=== PATIENT | male | born 1970 | race Caucasian/White ===

== ENCOUNTER 2017-02-03 01:56 | Inpatient (IN) | payer BC, OTHER ==
[~2017-02-03] VITALS: Ht 182.9 cm; Wt 128.4 kg
[~2017-02-03 01:56] MED LIST: ADVIN10/60 INH
[2017-02-03] MEDS ORDERED: ONDANSETRON INJ 2 MG/ML 2 ML VIAL IV STA (02:09)
[2017-02-03] MEDS ORDERED: HYDROmorphone INJ 1 MG/ML SYR IV STA ×4 (02:09→11:20)
[2017-02-03] MEDS ORDERED: SODIUM CHLORIDE 0.9% 1000ML 1,000 ML IV STA (02:09)
[2017-02-03 02:27] LABS: BASO % 0.3 %; BASO ABS # 0.03 K/uL (0-0.2); COMPLETE YES; EOS % 1.1 %; HEMATOCRIT 42.9 % (42-52); IG% 0.1 %; LYMPH % 29.6 %; MEAN CELL VOLUME 93.1 fL (80-100); MEAN CORPUSCULAR HEMOGLOBIN 32.8 pg (25-34); MEAN CORPUSCULAR HGB CONC 35.2 g/dl (32-36); MEAN PLATELET VOLUME 10.9 fL (7.4-10.4); MONO % 9.7 %; NEUT % 59.2 %; PLATELET COUNT 225 K/uL (130-400); RED BLOOD COUNT 4.61 M/uL (4.7-6.1); WHITE BLOOD COUNT 9.13 K/uL (4.8-10.8)
[2017-02-03 02:45] LABS: BUN/CREATININE RATIO 10.9 (10-20); CALCIUM 8.2 mg/dl (8.5-10.1); CREATININE 0.92 mg/dl (0.60-1.40); POTASSIUM 3.6 mmol/L (3.5-5.1)
[2017-02-03] MEDS ORDERED: MISCCAP80 PO (03:42)
[2017-02-03] MEDS ORDERED: OMEG10007 PO (03:42)
[2017-02-03] MEDS ORDERED: MULT-506 PO (03:42)
[2017-02-03] MEDS ORDERED: CHOL1CAP51 PO (03:42)
[2017-02-03] MEDS ORDERED: CLR10 PO (03:43)
[2017-02-03] MEDS ORDERED: OPTIRAY 320 IV PRN (04:00)
[2017-02-03 04:06] LABS: URINE APPEARANCE CLOUDY (CLEAR); URINE BILIRUBIN NEG (NEG); URINE COLOR YELLOW; URINE NITRITE NEG (NEG); URINE SPECIFIC GRAVITY 1.023 (1.000-1.030); UROBILINOGEN NEG (NEG); ZZUR CULT IF INDIC CLEAN CATCH NO
[2017-02-03 04:10] LABS: MANUAL MICROSCOPIC REQUIRED? NO; REVIEW REQ? NO
[2017-02-03] MEDS ORDERED: HYDROmorphone INJ 2 MG/ML SYR/VIAL IV STA (04:11)
[2017-02-03] MEDS ORDERED: PIPERACILLIN/TAZOBACTAM 4.5 GM/100ML D5W IV STA (04:48)
[2017-02-03] MEDS ORDERED: VANCOMYCIN INJ 2,800 MG in SODIUM CHLORIDE 0.9% 500ML 500 ML IV STA (04:48)
[2017-02-03] MEDS ORDERED: POLYETHYLENE (MIRALAX) 17 GM PACK PO PRN (05:45)
[2017-02-03] MEDS ORDERED: MoRPHine SULFATE 4 MG/ML 1 ML CARP\\VIAL IV PRN (05:45)
[2017-02-03] MEDS ORDERED: ONDANSETRON INJ 2 MG/ML 2 ML VIAL IV PRN (05:45)
[2017-02-03] MEDS ORDERED: LORAZEPAM 1 MG TAB PO PRN (05:45)
[2017-02-03] MEDS ORDERED: ZOLPIDEM TARTRATE 5 MG TAB PO PRN (05:45)
[2017-02-03] MEDS ORDERED: PIPERACILL/TAZOBAC IV 3.375 GM in DEXTROSE 5% 100ML 100 ML IV SCH (06:00)
--- NOTE | 2017-02-03 06:07 | EMERGENCY ROOM VISIT NOTE ---
History Report prepared by Hajaibmatias: Noe Pulido Under the Supervision of: Dr. Dennis Shaffer M.D. First contact with patient: 02:04 Chief Complaint: ABDOMINAL PAIN Stated Complaint: PAIN ON RIGHT SIDE Nursing Triage Summary: Pt reports fever for 6 days. At 10 pm pt developed right sided pain that radiates to right shoulder. History of Present Illness The patient is a 46 year old male who presents to the Emergency Room with complaints of constant upper abdominal pain beginning four hours ago. He states that his pain began suddenly. He states that he has been experiencing a shooting pain into his right shoulder. The patient states "it feels like a muscle pain, like I twisted something". He notes that he has had a fever for the past six days. His fever peaked at 102.7 degrees. The patient notes that his symptoms began immediately following dinner, where he had three alcoholic drinks. He denies any chest pain or SOB. He has no history of blood clots. The patient is not chronically on steroids. He denies any recent travel. He denies any recent trauma, or exposure or chemicals. He notes that he has a history of elevated liver enzymes with unknown etiology. The patient's mother has a history of gallbladder issues. Source of History: patient Onset: four hours ago Position: abdomen (upper) Timing: constant Associated Symptoms: + fevers (beginning 6 days ago), No SOB, No chest pain Note: The patient also complains of pain shooting into his right shoulder. Review of Systems See HPI for pertinent positives & negatives. A total of 10 systems reviewed and were otherwise negative. Past Medical & Surgical Medical Problems: (1) Asthma (2) Pleural effusion (3) Pleuritis (4) Pneumonia Family History no pertinent family history stated Social History Smoking Status: Current Every Day Smoker Occupation Status: employed Current/Historical Medications Scheduled Cholecalciferol (Vitamin D3 High Potency), 1,000 UNIT PO DAILY Fish Oil ([place]-3), 1 CAP PO DAILY Loratadine (Claritin), 10 MG PO DAILY Multivitamin (Multivitamin), 1 TAB PO DAILY Probiotic Product (Probiotic), 1 CAP PO DAILY Allergies Coded Allergies: Omeprazole (Unverified Allergy, Mild, 02/03/17) Physical Exam Vital Signs Date Time Temp Pulse Resp B/P Pulse Ox O2 Delivery O2 Flow Rate FiO2 02/03/17 05:21 99 02/03/17 04:33 78 18 140/88 94 Nasal Cannula 2.0 02/03/17 04:11 97 18 153/100 92 Room Air 02/03/17 03:35 102 20 136/78 94 Room Air 02/03/17 02:02 37.0 103 20 129/79 92 Room Air Physical Exam GENERAL: Patient is uncomfortable appearing and in moderate distress. HEENT: No acute trauma, normocephalic atraumatic, mucous membranes moist, no nasal congestion, no scleral icterus. NECK: No stridor, no adenopathy, no meningismus, trachea is midline. LUNGS: No dyspnea. Clear to auscultation and equal bilaterally. No wheeze, no rhonchi. HEART: Regular rate and rhythm. No murmurs, rubs, gallops appreciated. ABDOMEN: Soft, tenderness to palpation in RUQ, bowel sounds positive, no masses appreciated, no peritonitis. BACK: No midline tenderness, no CVA tenderness EXTREMITIES: Normal motion all extremities, no cyanosis, no edema. NEUROLOGIC: Alert and oriented, no acute motor or sensory deficits, no focal weakness, cranial nerves grossly intact. SKIN: No rash, no jaundice, no diaphoresis. Medical Decision & Procedures ER Provider Diagnostic Interpretation: US/CT RESULTS PER [facility] AND MY REVIEW US RUQ The liver is mildly enlarged measuring 19.1 cm with increased echogenicity suggesting hepatic steatosis. Common bile duct is within normal limits measuring 3.9 mm. The gallbladder is unremarkable. No gallstones, sludge, gallbladder wall thickening, or pericholecystic fluid. The right kidney is unremarkable. CT ABDOMEN & PELVIS Patulous passes are seen within the lower lobes which may represent inflammatory / infectious process. Small right-sided pleural effusion. Decreased attenuation of the liver suggest hepatic steatosis. The gallbladder, spleen, pancreas, and adrenal glands are unremarkable. Simply cysts are seen within both kidneys. The appendix is unremarkable. Modified colonic diverticulosis. No free fluid. No free air. No acute osseous abnormality. CTA CHEST: Comparison 01/15/[address] No evidence of pulmonary embolus. There are a few nodular areas of consolidation seen within the subpleural lungs. Findings may represent inflammatory/ infectious process to include septic emboli and Miya's granulomatosis. Trace right-sided pleural effusion. No pneumothorax. The heart and pericardium are unremarkable. Subcentimeter mediastinal and hilar lymph nodes, likely reactive. Visualized upper abdomen is unremkarble. No acute osseous abnormality. Laboratory Results 02/03/17 02:10 Red Blood Count 4.61, Mean Corpuscular Volume 93.1, Mean Corpuscular Hemoglobin 32.8, Mean Corpuscular Hemoglobin Concent 35.2, Mean Platelet Volume 10.9, Neutrophils (%) (Auto) 59.2, Lymphocytes (%) (Auto) 29.6, Monocytes (%) (Auto) 9.7, Eosinophils (%) (Auto) 1.1, Basophils (%) (Auto) 0.3, Neutrophils # (Auto) 5.40, Lymphocytes # (Auto) 2.70, Monocytes # (Auto) 0.89, Eosinophils # (Auto) 0.10, Basophils # (Auto) 0.03 02/03/17 02:10 Test 02/03/17 02:10 02/03/17 03:30 02/03/17 05:20 02/03/17 05:30 White Blood Count 9.13 K/uL (4.8-10.8) Red Blood Count 4.61 M/uL (4.7-6.1) Hemoglobin 15.1 g/dL (14.0-18.0) Hematocrit 42.9 % (42-52) Mean Corpuscular Volume 93.1 fL (80-100) Mean Corpuscular Hemoglobin 32.8 pg (25-34) Mean Corpuscular Hemoglobin Concent 35.2 g/dl (32-36) Platelet Count 225 K/uL (130-400) Mean Platelet Volume 10.9 fL (7.4-10.4) Neutrophils (%) (Auto) 59.2 % Lymphocytes (%) (Auto) 29.6 % Monocytes (%) (Auto) 9.7 % Eosinophils (%) (Auto) 1.1 % Basophils (%) (Auto) 0.3 % Neutrophils # (Auto) 5.40 K/uL (1.4-6.5) Lymphocytes # (Auto) 2.70 K/uL (1.2-3.4) Monocytes # (Auto) 0.89 K/uL (0.11-0.59) Eosinophils # (Auto) 0.10 K/uL (0-0.5) Basophils # (Auto) 0.03 K/uL (0-0.2) RDW Standard Deviation 39.9 fL (36.4-46.3) RDW Coefficient of Variation 11.8 % (11.5-14.5) Immature Granulocyte % (Auto) 0.1 % Immature Granulocyte # (Auto) 0.01 K/uL (0.00-0.02) D-Dimer 1090 ug/L FEU (0-500) Anion Gap 9.0 mmol/L (3-11) Est Creatinine Clear Calc Drug Dose 141.2 ml/min Estimated GFR () 116.8 Estimated GFR (Non- 100.8 BUN/Creatinine Ratio 10.9 (10-20) Calcium Level 8.2 mg/dl (8.5-10.1) Total Bilirubin 0.3 mg/dl (0.2-1) Direct Bilirubin 0.1 mg/dl (0-0.2) Aspartate Amino Transf (AST/SGOT) 17 U/L (15-37) Alanine Aminotransferase (ALT/SGPT) 44 U/L (12-78) Alkaline Phosphatase 70 U/L (45-117) Total Protein 7.7 gm/dl (6.4-8.2) Albumin 3.5 gm/dl (3.4-5.0) Lipase 124 U/L (73-393) Urine Color YELLOW Urine Appearance CLOUDY (CLEAR) Urine pH 5.0 (4.5-7.5) Urine Specific [place] 1.023 (1.000-1.030) Urine Protein NEG (NEG) Urine Glucose (UA) NEG (NEG) Urine Ketones 1+ (NEG) Urine Occult Blood NEG (NEG) Urine Nitrite NEG (NEG) Urine Bilirubin NEG (NEG) Urine Urobilinogen NEG (NEG) Urine Leukocyte Esterase NEG (NEG) Urine WBC (Auto) 1-5 /hpf (0-5) Urine RBC (Auto) 0-4 /hpf (0-4) Urine Hyaline Casts (Auto) 1-5 /lpf (0-5) Urine Epithelial Cells (Auto) 5-10 /lpf (0-5) Urine Bacteria (Auto) NEG (NEG) Erythrocyte Sedimentation Rate 61 mm/hr (0-14) Total Creatine Kinase 80 U/L (39-308) Creatine Kinase MB < 0.5 ng/ml (0.5-3.6) Creatine Kinase MB Ratio (0-3.0) Troponin I < 0.015 ng/ml (0-0.045) C-Reactive Protein 4.32 mg/dl (0-0.29) Bedside Lactic Acid Venous 0.79 mmol/L (0.90-1.70) Laboratory results as reviewed by me. Medications Administered Medications (Trade) Dose Ordered Sig/Trae Route Start Time Stop Time Status Last Admin Dose Admin Hydromorphone HCl (Dilaudid Inj) 1 mg NOW STAT IV 02/03/17 02:09 02/03/17 02:10 DC 02/03/17 02:26 1 MG Ondansetron HCl 4 mg 4 mg NOW STAT IV 02/03/17 02:09 02/03/17 02:10 DC 02/03/17 02:26 4 MG Sodium Chloride (Nss 1000ml) 1,000 ml @ 999 mls/hr Q1H1M STAT IV 02/03/17 02:09 02/03/17 03:09 DC 02/03/17 02:09 999 MLS/HR Hydromorphone HCl (Dilaudid Inj) 1 mg NOW STAT IV 02/03/17 02:27 02/03/17 02:29 DC 02/03/17 02:32 1 MG Hydromorphone HCl (Dilaudid Inj) 1 mg NOW STAT IV 02/03/17 03:25 02/03/17 03:26 DC 02/03/17 03:38 1 MG Hydromorphone HCl (Dilaudid Inj) 2 mg NOW STAT IV 02/03/17 04:11 02/03/17 04:12 DC 02/03/17 04:28 2 MG Piperacillin Sod/ Tazobactam Sod 4.5 gm 4.5 gm NOW STAT IV 02/03/17 04:48 02/03/17 04:51 DC 02/03/17 05:35 4.5 GM Vancomycin HCl/ Sodium Chloride (Vancomycin Inj/ Nss 500ml) 556 ml @ 200 mls/hr ONE STAT IV 02/03/17 04:48 02/03/17 07:34 DC 02/03/17 05:54 200 MLS/HR ECG Indication: abdominal pain Rate (beats per minute): 93 Rhythm: normal sinus Findings: no acute ischemic change, no ectopy ED Course 0206: The patient was evaluated in room B4B. A complete history and physical exam was performed. 0325: I reassessed the patient, and he is having more pain. 0209: Ordered sodium chloride 1,000 ml @ 999 mls/hr IV, Zofran Inj 4 mg IV, Dilaudid Inj 1 mg IV 0227: Ordered Dilaudid Inj 1 mg IV 0325: Ordered Dilaudid Inj 1 mg IV 0345: I checked in on the patient, and he states that his pain is now more continuous, but less severe than before. He agrees to a CT. 0411: Ordered Dilaudid Inj 2 mg IV. 0445: I spoke with the patient. He is agreeable to staying in the hospital. 0448: Ordered Vancomycin HCl 2800 mg/Sodium Chloride 556 ml @ 200 mls/hr, Zosyn IV 4.5 gm IV. 0505: Upon reevaluation, the patient is resting comfortably. Discussed results and treatment plan with the patient. He verbalized understanding and agreement with the treatment plan. The patient will be evaluated for further management. Medical Decision Differential: Cholecystitis, Gallbladder disfunction, Hepatic Disfunction, Gastritis/PUD, Pancreatitis, ACS, Aortic Pathology, amongst other pathologies entertained. 46 yr old male arrives with complaint of RUQ abdominal pain radiating to right posterior chest/shoulder. Associated with pleuritic chest pain. Fevers ongoing for last week. US Gallbladder unremarkable. Thus with pleuritic pain felt next concern PE and having +dimer will need CT PE Study. While doing this will get CT Abdo/Pelv as to verify no other abdominal infectious etiology either. CT PE with multiple areas of infection raising concern for septic emboli. Of note patient with normal WBC and no fever now. On rediscussing with patient he notes recent dental infection. With this I am concerned he may have seeded heart valve and may have endocarditis. I do not appreciate murmur on exam. Blood cultures, lactic acid, esr, crp ordered. Lactic is wnl and not hypotensive. He is not septic shock, nor does he currently meet sepsis criteria. However, as he has concern for septic emboli, he is having pretty much intractable pain, and he will need IV abx, he will need to come in for further evaluation/treatment. Stable otherwise. He and (who is a nurse) agree with plan and questions answered. Consults Time Called: [phone] Consulting Physician: Dr. Arroyo [place] [place] Returned Call: [phone] Discussed the patient's case. The patient will be evaluated for further treatment and disposition. Impression Primary Impression: Septic embolism Additional Impressions: Pleural effusion Intractable pain Scribe Attestation The scribe's documentation has been prepared under my direction and personally reviewed by me in its entirety. I confirm that the note above accurately reflects all work, treatment, procedures, and medical decision making performed by me. Departure Information Dispostion Being Evaluated By Hospitalist Referrals Naif Ugalde M.D. (PCP) Patient Instructions My [facility] Problem Qualifiers
--- NOTE | 2017-02-03 06:08 | History and Physical ---
History & Physical Date & Time of Service: February 03, 2017 at 05:45 Chief Complaint: Pain On Right Side Primary Care Physician: Naif Ugalde M.D. History of Present Illness Source: patient, family This is a 46 yo m with no significant past medical history which is presenting to us with acute right sided abdominal pain/ shoulder pain which started approx 4 hour [employer] right after having dinner where he consumed 3 alcoholic drinks. Patient states that he went to lay down when he had a sharp 10 /10 pain in the RUQ of his abdomen. He states that it radiates to the right flank and into the right shoulder. It is worsened with any sort of movement and especially with a deep breath. After having received 4 mg of Dilaudid the patient is still suffering from 6/10 pain with any movement. Aside from this pain he denies any chest pain, dyspnea, cough, rash, myalgias, weakness or fatigue. He has been suffering from daily fever x 6 days with a peak temp of 102.7F. Since the patient's abdominal pain was isolated to the right side the patient had a USG of the gall bladder done. No cholelithiasis however hepatic steatosis noted. Further evaluations were completed including a CT abd/ chest and in the CT it was noted the patient had mediastinal and hilar lymph nodes, nodular area of consolidation seen within the subpleural lungs possibly representing infectious source. When probing the patient he notes that he recently broke off his left incisor and has not seen any dentist. The significant other notes that he is poorly compliant with his dentist. Aside from this no recent infection. Patient does smoke marijuana on a daily basis. Past Medical/Surgical History Medical Problems: (1) Asthma Status: Chronic Family History FH: gallbladder disease MOTHER Social History Smoking Status: Current Some Day Smoker Smokeless Tobacco Use: No Alcohol Use: socially Drug Use: marijuana (daily) Marital Status: Housing status: lives with family Multi-Drug Resistant Organisms History of MDRO: No Allergies Coded Allergies: Omeprazole (Unverified Allergy, Mild, 02/03/17) Home Medications Scheduled Cholecalciferol (Vitamin D3 High Potency), 1,000 UNIT PO DAILY Fish Oil ([place]-3), 1 CAP PO DAILY Loratadine (Claritin), 10 MG PO DAILY Multivitamin (Multivitamin), 1 TAB PO DAILY Probiotic Product (Probiotic), 1 CAP PO DAILY Review of Systems Constitutional: No fever Eyes: No worsening of vision ENT: No hearing loss Respiratory: + problem reported (pain with deep breath), No cough, No dyspnea at rest, No dyspnea on exertion, No shortness of breath, No sputum, No wheezing Cardiovascular: No chest pain Abdomen: + nausea, + pain, No constipation, No diarrhea, No vomiting Musculoskeletal: No joint pain, No muscle pain Genitourinary - Male: No dysuria, No hematuria Neurologic: No balance problems, No numbness/tingling, No weakness Psychiatric: No depression symptoms Endocrine: No fatigue Integumentary: No rash Physical Exam Vital Signs Date Time Temp Pulse Resp B/P Pulse Ox O2 Delivery O2 Flow Rate FiO2 02/03/17 05:21 99 02/03/17 04:33 78 18 140/88 94 Nasal Cannula 2.0 02/03/17 04:11 97 18 153/100 92 Room Air 02/03/17 03:35 102 20 136/78 94 Room Air 02/03/17 02:02 37.0 103 20 129/79 92 Room Air General Appearance: no apparent distress, + pertinent finding (uncomfortable with any deep breath) Head: normocephalic, atraumatic Eyes: normal inspection ENT: + pertinent finding (poor dentition, broke left upper incisor ) Neck: supple Respiratory/Chest: normal breath sounds, no respiratory distress, no accessory muscle use Cardiovascular: regular rate, rhythm, no murmur, normal peripheral pulses Abdomen/GI: normal bowel sounds, non tender, soft, + pertinent finding (no tenderness with RUQ palpation, negative de jesus, no CVA, no tenderness at [place]) Back: normal inspection Extremities/Musculoskelatal: normal inspection, no calf tenderness, no pedal edema Neurologic/Psych: alert, normal mood/affect, oriented x 3, + pertinent finding (anxious) Skin: normal color, warm/dry, no rash Lymphatic: no adenopathy Diagnostics Laboratory Results Results Past 24 Hours Test 02/03/17 02:10 02/03/17 03:30 02/03/17 04:48 02/03/17 05:20 Range/Units White Blood Count 9.13 4.8-10.8 K/uL Red Blood Count 4.61 4.7-6.1 M/uL Hemoglobin 15.1 14.0-18.0 g/dL Hematocrit 42.9 42-52 % Mean Corpuscular Volume 93.1 80-100 fL Mean Corpuscular Hemoglobin 32.8 25-34 pg Mean Corpuscular Hemoglobin Concent 35.2 32-36 g/dl Platelet Count 225 130-400 K/uL Mean Platelet Volume 10.9 7.4-10.4 fL Neutrophils (%) (Auto) 59.2 % Lymphocytes (%) (Auto) 29.6 % Monocytes (%) (Auto) 9.7 % Eosinophils (%) (Auto) 1.1 % Basophils (%) (Auto) 0.3 % Neutrophils # (Auto) 5.40 1.4-6.5 K/uL Lymphocytes # (Auto) 2.70 1.2-3.4 K/uL Monocytes # (Auto) 0.89 0.11-0.59 K/uL Eosinophils # (Auto) 0.10 0-0.5 K/uL Basophils # (Auto) 0.03 0-0.2 K/uL RDW Standard Deviation 39.9 36.4-46.3 fL RDW Coefficient of Variation 11.8 11.5-14.5 % Immature Granulocyte % (Auto) 0.1 % Immature Granulocyte # (Auto) 0.01 0.00-0.02 K/uL D-Dimer 1090 0-500 ug/L FEU Sodium Level 142 136-145 mmol/L Potassium Level 3.6 3.5-5.1 mmol/L Chloride Level 109 98-107 mmol/L Carbon Dioxide Level 24 21-32 mmol/L Anion Gap 9.0 3-11 mmol/L Blood Urea Nitrogen 10 7-18 mg/dl Creatinine 0.92 0.60-1.40 mg/dl Est Creatinine Clear Calc Drug Dose 141.2 ml/min Estimated GFR () 116.8 Estimated GFR (Non- 100.8 BUN/Creatinine Ratio 10.9 10-20 Random Glucose 101 70-99 mg/dl Calcium Level 8.2 8.5-10.1 mg/dl Total Bilirubin 0.3 0.2-1 mg/dl Direct Bilirubin 0.1 0-0.2 mg/dl Aspartate Amino Transf (AST/SGOT) 17 15-37 U/L Alanine Aminotransferase (ALT/SGPT) 44 12-78 U/L Alkaline Phosphatase 70 45-117 U/L Total Protein 7.7 6.4-8.2 gm/dl Albumin 3.5 3.4-5.0 gm/dl Lipase 124 73-393 U/L Urine Color YELLOW Urine Appearance CLOUDY CLEAR Urine pH 5.0 4.5-7.5 Urine Specific [place] 1.023 1.000-1.030 Urine Protein NEG NEG Urine Glucose (UA) NEG NEG Urine Ketones 1+ NEG Urine Occult Blood NEG NEG Urine Nitrite NEG NEG Urine Bilirubin NEG NEG Urine Urobilinogen NEG NEG Urine Leukocyte Esterase NEG NEG Urine WBC (Auto) 1-5 0-5 /hpf Urine RBC (Auto) 0-4 0-4 /hpf Urine Hyaline Casts (Auto) 1-5 0-5 /lpf Urine Epithelial Cells (Auto) 5-10 0-5 /lpf Urine Bacteria (Auto) NEG NEG Creatine Kinase MB Ratio 0-3.0 Test 02/03/17 05:30 Range/Units Bedside Lactic Acid Venous 0.79 0.90-1.70 mmol/L Microbiology Results 02/03/17 Blood Culture, Received Pending 02/03/17 Blood Culture, Received Pending Diagnostic Radiology CTA chest: no evidence of pulmonary embolism, new nodular area of consolidation in subpleural lungs reflecting inflammatory/ infectious process; differential includes septic emboli vs Miya Trace right pleural effusion no pneumothorax, heart and pericardium are unremarkable, subcentimeter mediastinal and hilar lymph nodes, likely reactive, visualized upper abdomen is unremarkable, no acute osseous abn CT Abd patulous passes are seen in the lower lobes; small rt sided pleural effusion, decreased attenuation of the liver suggesting liver steatosis, gallbladder, spleen, pancreas and adrenal glands are unremarkable, simple cysts are seen within both kindeys, appendix unremarkable, modified colonic diverticulosis, no free fluid or air USG gall liver has increased echogenicity reflecting hepatic steatosis, CBD is 3.9mm, Gall is unremarkable Impression Assessment and Plan This is a 46 yo m suffering from pneumonia/ right pleural effusion causing RUQ pain and referred pain in the right shoulder via phrenic nerve. This pain is pleuritic in nature reflected by no pain on palpation and worsening with inspiration. Considering the patient's poor dentition, recent trauma to his teeth and acuity of the pna will rule out endocarditis. 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 I discussed the case with the resident and agree with the findings and plan as documented in the note. Any exceptions or clarifications are listed here: 46 y/o M poor dentition , previous post placement for dental implant and multiple carries - no other med Hx Presents with fevers, pleuritic CP Septic emboli seen on CT OE AAO x 3 S1,2 R - no murmurs CTAB NT, ND No CCE P: Vanc and Cef provided empirically Cultures pending Echo pending - may need JOSE RAUL Discussed above with pt , and resident Documented By: Mahesh Arroyo Level of Care Telemetry Resuscitation Status FULL RESUSCITATION VTE Prophylaxis VTE Risk Assessment Done? Y/N: Yes Risk Level: Moderate Given or contraindicated: Unfractionated heparin SQ Social Service Consult None Apply Note Total Time: Critical Care 30 - 74 minutes Additional Copies To Naif Ugalde M.D.
[2017-02-03 06:09] LABS: C-REACTIVE PROTEIN 4.32 mg/dl (0-0.29)
[2017-02-03 06:25] VITALS: BP 145/90; PULSE 96; TEMP 37.1; O2SAT 96; Ht 182.9 cm; Wt 128.4 kg
--- NOTE | 2017-02-03 07:02 | Family Medicine Progress Note ---
Progress Note Date of Service February 03, 2017. Subjective Pt evaluation today including: conversation w/ patient, physical exam, chart review, lab review The patient was seen and examined at bedside with mom, spouse and daughter in the room. Pt has having severe chest pain on deep inspiration. Pt denies IV drug use, denies having new sexual partners, denies any new dental procedures. Pt reports that at approximately 10 years ago he was admitted to the hospital for a tonsillar infection. Pt states that is is also interested in the lowest dose nicotine patch. Echo today showed * There is mild concentric left ventricular hypertrophy. * Left ventricular systolic function is normal. * Grade I diastolic dysfunction, (abnormal relaxation pattern). * The left atrium is borderline dilated. * Image quality was not sufficient to exclude endocarditis. * There is moderate mitral annular calcification. Patient is resting comfortably in bed. Eating and urinating well. Plan of care was described to the patient and all questions were answered. Constitutional: No chills, No fever, No sweats, No weight loss Respiratory: No cough, No sputum Objective Physical Exam General Appearance: WD/WN, + moderate distress Neck: supple Respiratory/Chest: chest non-tender, lungs clear, normal breath sounds, no accessory muscle use, + pertinent finding (pt has pain on deep inspiration on the right side of chest, that radiates over the right shoulder.) Cardiovascular: regular rate, rhythm, no edema, no gallop, no JVD, no murmur Abdomen: normal bowel sounds, non tender, soft, no organomegaly Extremities: non-tender, normal inspection, no pedal edema, no calf tenderness Neurologic/Psychiatric: alert, normal mood/affect, oriented x 3, + pertinent finding (alightly anxious) Assessment and Plan This is a 46 yo m suffering from pneumonia/ right pleural effusion causing RUQ pain and referred pain in the right shoulder via phrenic nerve. This pain is pleuritic in nature reflected by no pain on palpation and worsening with inspiration. Pt denies IV drug use, recent oral surgery (his tooth does hurt) and need for HIV testing (pt is monogamous). TTE was grossly normal today. Will make NPO after midnight and order JOSE RAUL. PNA and right sided pleural effusion resulting in pleuritic pain - Tele admission while ruling out endocarditis - TTE cannot rule out endocarditis, will order JOSE RAUL. - continue with Zosyn and vanc - ESR = 64 (elevated), CRP= 4.32 (elevated), Procalcitonin<0.05 (normal) - No WBC count, check CBC and CMP tomorrow AM. - pain control with Dilaudid 1.5 IV Q2H PRN - blood culture x 2 pending Hepatic Steatosis and Obesity - HBA1C and FLP tomorrow AM. Anxiety - Zolpidem for sleep - Ativan 1mg PRN for anxiety. Tobacco Abuser - Nicotine patch today. Diet: NPO after midnight for JOSE RAUL. DVT Prophylaxis Heparin bid Resident Involvement: Resident Care Provided Care Provided: Adult Hospital Medicine History Resident Physician Supervision Note: I was present with Dr. Garcia during the history and exam. I discussed the case with the resident and agree with the findings and plan as documented in the note. Any exceptions or clarifications are listed here. Significantly discomfited at rest w/ intermittent right lower chest pain radiating to the right shoulder which worsens with deep inspiration. Anxious appearing at rest, smokes 5 cig/day. General Appearance: mild distress, obese Respiratory: chest non-tender, lungs clear, normal breath sounds, no respiratory distress Cardiovascular: normal peripheral pulses, regular rate, rhythm, no edema, no murmur Gastrointestinal: normal bowel sounds, non tender, soft, no organomegaly Assessment/Plan 46 y/o male h/o tobacco use w/ RUQ/lower chest pain concerning for PNA PNA w/ effuesion - telemetry monitoring - TTE without vegetation visible - JOSE RAUL tomorrow, continue vanc/zosyn. f/u BCx. Trend CBC. Pain control as noted Hepatic steatosis Anxiety - no formal dx per patient but very 'high stress' - ativan PRN Tobacco use disorder - nicotine patch 7mg DVT PPX - heparin
--- NOTE | 2017-02-03 07:14 | DIAGNOSTIC IMAGING REPORT ---
ABDOMINAL ULTRASOUND, RIGHT UPPER QUADRANT HISTORY: Right upper quadrant pain. Fevers.. COMPARISON: Right upper quadrant ultrasound November 30, 2012. FINDINGS: Hepatic echogenicity is increased. No hepatic lesions are identified. There are no gallstones. There is no biliary ductal dilatation. The pancreatic body is normal. The head and tail are partially obscured. There is no right hydronephrosis. IMPRESSION: 1. No gallstones or biliary ductal dilatation. 2. Fatty liver. Electronically signed by: Patrick Espinoza M.D. 02/03/2017 7:13 AM Dictated Date/Time: 02/03/2017 7:11 AM
--- NOTE | 2017-02-03 07:24 | DIAGNOSTIC IMAGING REPORT ---
CT OF THE ABDOMEN AND PELVIS WITH CONTRAST CLINICAL HISTORY: Right flank pain, shortness of breath, fever COMPARISON STUDY: Right upper quadrant ultrasound November 30, 2012 and February 03, 2017 TECHNIQUE: Following IV administration of 92 mL of Optiray-320, axial images of the abdomen and pelvis were obtained from the lung bases to the proximal femurs. Images were reviewed in the axial, sagittal, and coronal planes. IV contrast was administered without complication. CT DOSE: 2069.02 mGy.cm FINDINGS: The chest will be reported separately. Visualized portions of the lower chest demonstrate multifocal subpleural opacities which suggest an infectious process. There is a small right pleural effusion. Fatty infiltration of the liver is noted. The spleen, adrenal glands and pancreas are normal. There is no hydronephrosis. 2.5 cm lesion within the upper pole the right kidney measures near water attenuation. This likely reflects a cyst. There is no evidence for a bowel obstruction. The appendix is normal. There is no ascites. There are scattered colonic diverticula without evidence for acute diverticulitis. Skeletal structures are unremarkable. IMPRESSION: 1. Multifocal subpleural opacities within visualized portions of the lungs. These findings are better assessed on the chest CT but favor an infectious process. Please see that report for further description. Small right pleural effusion. 2. Fatty liver. 3. No bowel obstruction. Normal appendix. Electronically signed by: Patrick Espinoza M.D. 02/03/2017 7:23 AM Dictated Date/Time: 02/03/2017 7:18 AM
[2017-02-03] MEDS ORDERED: VANCOMYCIN CONSULT ACTIVE PRN (07:30)
[2017-02-03] MEDS ORDERED: PIPERACILL/TAZOBAC CONSULT ACTIVE PRN (07:30)
[2017-02-03] MEDS: HYDROmorphone INJ 1 MG/ML SYR IV PRN ×2 (07:44→10:40)
[2017-02-03] MEDS: MULTIVITAMIN TAB PO SCH (07:50)
[2017-02-03] MEDS: LACTOBACILLUS ACIDOPHILUS (FLORANEX) TAB PO SCH (07:50)
[2017-02-03] MEDS: OMEGA-3 (PURIFIED FISH OIL) 1 GM CAP PO SCH (07:50)
[2017-02-03] MEDS: CHOLECALCIFEROL 1000 INTER.UNIT TAB PO SCH (07:50)
[2017-02-03] MEDS: LORATADINE 10 MG TAB PO SCH (07:50)
[2017-02-03 08:00] VITALS: O2SAT 97
--- NOTE | 2017-02-03 08:02 | DIAGNOSTIC IMAGING REPORT ---
CHEST CTA for PULMONARY ARTERIES CT DOSE: HISTORY: Right-sided pleuritic chest pain. Short of breath. TECHNIQUE: Multiaxial CT images of the chest were performed following the intravenous administration of contrast to evaluate the pulmonary arteries. Maximal intensity projection images were also obtained. COMPARISON STUDY: Chest CTA 01/15/2012. FINDINGS: Trace right pleural effusion. No evidence for an aortic dissection. No evidence for pulmonary embolus. No pneumothorax. A few scattered patchy and nodular airspace opacities seen within the right upper lobe and bilateral lower lobes. Dominant nodular density within the right upper lobe measures 2 cm. This demonstrates a groundglass halo. No evidence for cavitation at this time. Hepatic steatosis. Slight increase in size in the mediastinal and right hilar lymph nodes. This may be reactive. The heart is stable in size. No pericardial effusion. IMPRESSION: 1. No evidence for pulmonary embolus. 2. Trace right pleural effusion. 3. A few scattered patchy and nodular airspace opacities seen within the right upper lobe and bilateral lower lobes. This favors an atypical pneumonia. [address] follow up is recommended to ensure resolution. Electronically signed by: Arturo Webster M.D. 02/03/2017 8:01 AM Dictated Date/Time: 02/03/2017 7:56 AM
[2017-02-03 08:04] LABS: INR 0.9 (0.9-1.1); PARTIAL THROMBOPLASTIN RATIO 1.2
[2017-02-03] MEDS: HEPARIN SOD 5000 UNIT/0.5 ML CARP SQ SCH ×2 (09:30→21:05)
[2017-02-03] MEDS: PIPERACILL/TAZOBAC IV 4.5 GM in DEXTROSE 5% 100ML IV SCH ×2 (11:15→20:34)
[2017-02-03] MEDS ORDERED: HYDROmorphone INJ 1 MG/ML SYR ONE (11:28)
[2017-02-03 11:35] VITALS: BP 146/105; PULSE 93; TEMP 37.2; O2SAT 92
--- NOTE | 2017-02-03 11:40 | Pharmacy Progress Note ---
Pharmacy Abx Initial Consult Date of Service February 03, 2017. Pharmacy Dosing Scope Date of Consult: 02/03/17 Consultation requested by: Dr. Strauss Pharmacy is consulted to initiate IV VANCOMYCIN and ZOSYN therapy, order appropriate labs and adjust drug dose/frequency. Subjective The patient is a 46 year old male admitted on February 03, 2017 at 05:44 with c/o abd pain, shoulder pain fever x 6 days. There is concern for PNX (CAP), R pleural effusion, and possible endocarditis. Objective Height (Feet): 6 Height (Inches): 0.00 Weight (Kilograms): 129.100 Vital Signs (Past 12Hrs) Vital Signs Past 12 Hours Date Time Temp Pulse Resp B/P Pulse Ox O2 Delivery O2 Flow Rate FiO2 02/03/17 08:00 97 Nasal Cannula 2.0 02/03/17 06:25 37.1 96 21 145/90 96 Nasal Cannula 2.0 02/03/17 06:08 96 16 155/96 95 Room Air 02/03/17 05:21 99 02/03/17 04:33 78 18 140/88 94 Nasal Cannula 2.0 02/03/17 04:11 97 18 153/100 92 Room Air 02/03/17 03:35 102 20 136/78 94 Room Air 02/03/17 02:02 37.0 103 20 129/79 92 Room Air Lab Results (24Hrs) Test 02/03/17 02:10 02/03/17 03:30 02/03/17 05:20 02/03/17 05:30 White Blood Count 9.13 K/uL (4.8-10.8) Red Blood Count 4.61 M/uL (4.7-6.1) Hemoglobin 15.1 g/dL (14.0-18.0) Hematocrit 42.9 % (42-52) Mean Corpuscular Volume 93.1 fL (80-100) Mean Corpuscular Hemoglobin 32.8 pg (25-34) Mean Corpuscular Hemoglobin Concent 35.2 g/dl (32-36) Platelet Count 225 K/uL (130-400) Mean Platelet Volume 10.9 fL (7.4-10.4) Neutrophils (%) (Auto) 59.2 % Lymphocytes (%) (Auto) 29.6 % Monocytes (%) (Auto) 9.7 % Eosinophils (%) (Auto) 1.1 % Basophils (%) (Auto) 0.3 % Neutrophils # (Auto) 5.40 K/uL (1.4-6.5) Lymphocytes # (Auto) 2.70 K/uL (1.2-3.4) Monocytes # (Auto) 0.89 K/uL (0.11-0.59) Eosinophils # (Auto) 0.10 K/uL (0-0.5) Basophils # (Auto) 0.03 K/uL (0-0.2) RDW Standard Deviation 39.9 fL (36.4-46.3) RDW Coefficient of Variation 11.8 % (11.5-14.5) Immature Granulocyte % (Auto) 0.1 % Immature Granulocyte # (Auto) 0.01 K/uL (0.00-0.02) Prothrombin Time 10.0 SECONDS (9.0-12.0) Prothromb Time International Ratio 0.9 (0.9-1.1) Activated Partial Thromboplast Time 32.0 SECONDS (21.0-31.0) Partial Thromboplastin Ratio 1.2 D-Dimer 1090 ug/L FEU (0-500) Sodium Level 142 mmol/L (136-145) Potassium Level 3.6 mmol/L (3.5-5.1) Chloride Level 109 mmol/L (98-107) Carbon Dioxide Level 24 mmol/L (21-32) Anion Gap 9.0 mmol/L (3-11) Blood Urea Nitrogen 10 mg/dl (7-18) Creatinine 0.92 mg/dl (0.60-1.40) Est Creatinine Clear Calc Drug Dose 141.2 ml/min Estimated GFR () 116.8 Estimated GFR (Non- 100.8 BUN/Creatinine Ratio 10.9 (10-20) Random Glucose 101 mg/dl (70-99) Calcium Level 8.2 mg/dl (8.5-10.1) Total Bilirubin 0.3 mg/dl (0.2-1) Direct Bilirubin 0.1 mg/dl (0-0.2) Aspartate Amino Transf (AST/SGOT) 17 U/L (15-37) Alanine Aminotransferase (ALT/SGPT) 44 U/L (12-78) Alkaline Phosphatase 70 U/L (45-117) Total Protein 7.7 gm/dl (6.4-8.2) Albumin 3.5 gm/dl (3.4-5.0) Lipase 124 U/L (73-393) Procalcitonin < 0.05 ng/ml (0-0.5) Urine Color YELLOW Urine Appearance CLOUDY (CLEAR) Urine pH 5.0 (4.5-7.5) Urine Specific [place] 1.023 (1.000-1.030) Urine Protein NEG (NEG) Urine Glucose (UA) NEG (NEG) Urine Ketones 1+ (NEG) Urine Occult Blood NEG (NEG) Urine Nitrite NEG (NEG) Urine Bilirubin NEG (NEG) Urine Urobilinogen NEG (NEG) Urine Leukocyte Esterase NEG (NEG) Urine WBC (Auto) 1-5 /hpf (0-5) Urine RBC (Auto) 0-4 /hpf (0-4) Urine Hyaline Casts (Auto) 1-5 /lpf (0-5) Urine Epithelial Cells (Auto) 5-10 /lpf (0-5) Urine Bacteria (Auto) NEG (NEG) Erythrocyte Sedimentation Rate 61 mm/hr (0-14) Total Creatine Kinase 80 U/L (39-308) Creatine Kinase MB < 0.5 ng/ml (0.5-3.6) Creatine Kinase MB Ratio (0-3.0) Troponin I < 0.015 ng/ml (0-0.045) C-Reactive Protein 4.32 mg/dl (0-0.29) Bedside Lactic Acid Venous 0.79 mmol/L (0.90-1.70) Test 02/03/17 06:08 Lactic Acid Level 0.6 mmol/L (0.4-2.0) Micro Results Date/Time Source Procedure Growth Status 02/03/17 05:20 Blood Blood Culture Pending Received 02/03/17 05:15 Blood Blood Culture Pending Received Assessment & Plan Assessment * 46 year old male admitted w/ CAP, R pleural effusion, possible endocarditis. * WBC and neut # within normal limits, LA also not elevated, Procalcitonin < 0.05 ESR is elevated however. HR in 90's, BP stable - no hypotension noted * Patient's BMI > 35 therefore estimates of CrCl and vancomycin Vd can be challenging Plan Vancomycin IV * Loading dose: 2800 mg (~22 mg/kg) * Maintenance dose: 1700 mg IV (13 mg/kg) every 10 hours * Goal trough level for pulmonary infxn, possible endocarditis : 15 to 20 mcg/mL * Trough level ordered for 02/04/17 * P'kinetic estimates: eCrCl ~100cc/min; Vd 0.65L/kg; half-life ~8 hours Piperacillin/tazobactam * 4.5 g bolus administered over 30 minutes, then 4.5 g IV extended infusion every 8 hours for CrCl greater than 20 mL/min OR every 12 hours for CrCl 20 mL/ min or less and dialysis. * Aggressive dosing selected due to critically ill status/BMI 35 or more Pharmacy will continue to follow and will adjust dose/frequency as necessary. Thank you.
[2017-02-03 12:00] VITALS: O2SAT 98
--- NOTE | 2017-02-03 12:06 | DIAGNOSTIC IMAGING REPORT ---
SINGLE VIEW CHEST CLINICAL HISTORY: Pleural effusion. FINDINGS: An AP, portable, upright chest radiograph is compared to study dated 01/15/2012 and correlated with chest CT performed the same day 02/03/2017. The examination is degraded by portable technique, large body habitus, and patient rotation. The cardiomediastinal heart is enlarged. The pulmonary vasculature is noncongested. There are low lung volumes. There is patchy airspace consolidation at the right lung base with a trace right pleural effusion. Airspace opacities are also seen at the left lung base. The upper lungs are clear. No pneumothorax is seen. The bony thorax is grossly intact. IMPRESSION: 1. There is patchy airspace consolidation at the right lung base with a small right pleural effusion. Airspace opacities are also present at the left lung base. Correlated clinically for evidence of pneumonia. Radiographic follow-up to resolution is recommended. 2. Mild cardiac enlargement without radiographic evidence of congestive failure. Electronically signed by: Rasta Sargent M.D. 02/03/2017 12:05 PM Dictated Date/Time: 02/03/2017 12:03 PM
[2017-02-03] MEDS: NICOTINE 7 MG/24 HR TDSY TD SCH (12:11)
[2017-02-03] MEDS: HYDROmorphone INJ 2 MG/ML SYR/VIAL IV PRN ×3 (13:43→21:12)
--- NOTE | 2017-02-03 14:20 | ECHOCARDIOGRAM REPORT ---
*NOTICE TO RECEIVING REPUBLICAN AGENCY This information is strictly Confidential and protected under [place] law. [place] law prohibits you from making any further disclosure of this information unless further disclosure is expressly permitted by the written consent of the person to whom it pertains or is authorized by law. A general authorization for the release of medical or other information is not sufficient for this purpose. Hospital accepts no responsibility if the information is made available to any other person, INCLUDING THE PATIENT. Interpretation Summary * Name: FRANCO OBANDO Study Date: 02/03/2017 08:16 AM BP: 155/96 mmHg * Patient Location: [facility] - [place] HR: 96 * : 1970 (M/d/yyyy) Gender: Male Height: 72 in * Age: 46 yrs Ethnicity: CA Weight: 280 lb * Ordering Physician: Debora Strauss * Referring Physician: Self, Referred * Performed By: Daphne Duke RDCS * * Reason For Study: Pleural effusion, edocarditis * BSA: 2.5 m2 * -- Conclusions -- * There is mild concentric left ventricular hypertrophy. * Left ventricular systolic function is normal. * Grade I diastolic dysfunction, (abnormal relaxation pattern). * The left atrium is borderline dilated. * Image quality was not sufficient to exclude endocarditis. * There is moderate mitral annular calcification. Procedure Details * A complete two-dimensional transthoracic echocardiogram was performed (2D, M-mode, Doppler and color flow Doppler). * A contrast injection of Definity was performed to improve assessment of LV function. * Contrast was injected into an intravenous site in the right arm. * One vial of Definity ultrasound contrast was diluted in normal saline to a total volume of 10 ml. A total of '3' ml of solution was administered during imaging. * Lot # [id number] of Definity utilized for procedure. * Expiration date FEB 27. * The attending nurse who injected the contrast agent was Tho Silva RN. Left Ventricle * The left ventricle is normal in size. * There is mild concentric left ventricular hypertrophy. * Ejection Fraction = 55-60%. * Left ventricular systolic function is normal. * Grade I diastolic dysfunction, (abnormal relaxation pattern). Right Ventricle * The right ventricle is not well visualized. Atria * The left atrium is borderline dilated. * Right atrium not well visualized. Mitral Valve * The mitral valve is grossly normal. * There is moderate mitral annular calcification. * Significant mitral regurgitation is absent. Tricuspid Valve * The tricuspid valve is not well visualized. Aortic Valve * The aortic valve is not well visualized. * No hemodynamically significant valvular aortic stenosis. * There is no significant aortic regurgitation. Great Vessels * The aortic root is normal size. Pericardium/Pleural * There is no pericardial effusion. MMode 2D Measurements and Calculations IVSd 1.3 cm LVIDd 4.5 cm LVIDs 3.1 cm LVPWd 1.3 cm IVS/LVPW 1.0 FS 30.3 % EDV(Teich) 92.2 ml ESV(Teich) 38.9 ml EF(Teich) 57.8 % EDV(cubed) 90.8 ml ESV(cubed) 30.7 ml EF(cubed) 66.2 % LV mass(C)d 221.6 grams LV mass(C)dI 90.2 grams/m\S\2 CO(Teich) 5.0 l/min CI(Teich) 2.0 l/min/m\S\2 SV(Teich) 53.3 ml SI(Teich) 21.7 ml/m\S\2 CO(cubed) 5.6 l/min CI(cubed) 2.3 l/min/m\S\2 SV(cubed) 60.1 ml SI(cubed) 24.4 ml/m\S\2 Ao root diam 3.0 cm Ao root area 7.2 cm\S\2 ACS 2.0 cm LA dimension 3.9 cm asc Aorta Diam 3.4 cm LA/Ao 1.3 LVOT diam 2.0 cm LVOT area 3.1 cm\S\2 LVAd ap4 37.7 cm\S\2 LVLd ap4 8.5 cm EDV(MOD-sp4) 135.0 ml LVAs ap4 21.8 cm\S\2 LVLs ap4 6.8 cm ESV(MOD-sp4) 59.0 ml EF(MOD-sp4) 56.3 % LVAd ap2 30.0 cm\S\2 LVLd ap2 8.6 cm EDV(MOD-sp2) 85.0 ml LVAs ap2 17.1 cm\S\2 LVLs ap2 6.8 cm ESV(MOD-sp2) 37.0 ml EF(MOD-sp2) 56.5 % CO(MOD-sp4) 7.1 l/min CI(MOD-sp4) 2.9 l/min/m\S\2 SV(MOD-sp4) 76.0 ml SI(MOD-sp4) 30.9 ml/m\S\2 CO(MOD-sp2) 4.5 l/min CI(MOD-sp2) 1.8 l/min/m\S\2 SV(MOD-sp2) 48.0 ml SI(MOD-sp2) 19.5 ml/m\S\2 Doppler Measurements and Calculations MV E max michael 93.3 cm/sec MV A max michael 102.2 cm/sec MV E/A 0.91 MV dec time 0.23 sec Ao V2 max 191.4 cm/sec Ao max PG 14.7 mmHg Ao max PG (full) 8.2 mmHg JAMES(V,A) 2.1 cm\S\2 JAMES(V,D) 2.1 cm\S\2 LV V1 max PG 6.5 mmHg LV V1 max 127.3 cm/sec PA V2 max 127.6 cm/sec PA max PG 6.5 mmHg PA acc slope 611.3 cm/sec\S\2 PA acc time 0.13 sec PA pr(Accel) 22.0 mmHg
[2017-02-03 16:00] VITALS: O2SAT 92
[2017-02-03 16:38] VITALS: BP 133/85; PULSE 79; TEMP 37.3; O2SAT 96
[2017-02-03] MEDS: VANCOMYCIN INJ 1,700 MG in SODIUM CHLORIDE 0.9% 500ML 500 ML IV SCH (17:09)
[2017-02-04 00:16] VITALS: BP 126/83; PULSE 85; TEMP 37.2; O2SAT 91
[2017-02-04] MEDS: VANCOMYCIN INJ 1,700 MG in SODIUM CHLORIDE 0.9% 500ML 500 ML IV SCH (01:45)
[2017-02-04 04:00] VITALS: BP 124/91; PULSE 98; TEMP 37.1; O2SAT 93
[2017-02-04] MEDS: PIPERACILL/TAZOBAC IV 4.5 GM in DEXTROSE 5% 100ML IV SCH (04:56)
[2017-02-04] MEDS: HYDROmorphone INJ 2 MG/ML SYR/VIAL IV PRN (05:01)
[2017-02-04 06:51] LABS: HEMATOCRIT 45.1 % (42-52); MEAN CELL VOLUME 94.2 fL (80-100); MEAN CORPUSCULAR HEMOGLOBIN 31.5 pg (25-34); MEAN CORPUSCULAR HGB CONC 33.5 g/dl (32-36); MEAN PLATELET VOLUME 10.7 fL (7.4-10.4); PLATELET COUNT 262 K/uL (130-400); RED BLOOD COUNT 4.79 M/uL (4.7-6.1); WHITE BLOOD COUNT 8.99 K/uL (4.8-10.8)
[2017-02-04 07:16] LABS: ESTIMATED AVERAGE GLUCOSE 105 mg/dl; HA1C FLAG Normal (Normal)
[2017-02-04 07:26] LABS: BUN/CREATININE RATIO 10.3 (10-20); CALCIUM 8.6 mg/dl (8.5-10.1); CREATININE 0.94 mg/dl (0.60-1.40); POTASSIUM 4.1 mmol/L (3.5-5.1)
--- NOTE | 2017-02-04 07:31 | Family Medicine Progress Note ---
Progress Note Date of Service February 04, 2017. Subjective Pt evaluation today including: conversation w/ patient, physical exam, chart review, lab review Required 3 doses of 1.5mg IV overnight. Pt reports feeling great. Pain is well controlled and he doesn't have dyspnea. X-ray this morning - IMPRESSION: Improving bibasilar parenchymal infiltrates. No acute overnight events. NPO for possible JOSE RAUL. Then made full diet. Plan of care was described to the patient and all questions were answered. Constitutional: No chills, No fever, No sweats, No weight loss Respiratory: No cough, No shortness of breath, No sputum, No wheezing Cardiovascular: No chest pain, No edema Musculoskeletal: No joint pain Objective Physical Exam General Appearance: WD/WN, no apparent distress Respiratory/Chest: chest non-tender, lungs clear, normal breath sounds, no respiratory distress, no accessory muscle use Cardiovascular: regular rate, rhythm, no edema, no gallop, no JVD, no murmur Abdomen: normal bowel sounds, non tender, soft, no organomegaly, no pulsatile mass Extremities: normal range of motion, non-tender, normal inspection, no pedal edema, no calf tenderness Neurologic/Psychiatric: no motor/sensory deficits, alert, normal mood/affect, oriented x 3 Skin: + pertinent finding (pt had a red skin rash over the abdomen, unknown origin, does not itch, bleed, petechiae like, non raised, non blanching.) Assessment and Plan 46M suffering from pneumonia/ right pleural effusion causing RUQ pain and referred pain in the right shoulder via phrenic nerve. This pain is pleuritic in nature reflected by no pain on palpation and worsening with inspiration. Pt denies IV drug use, recent oral surgery (his tooth does hurt) and need for HIV testing (pt is monogamous). TTE was grossly. Considered JOSE RAUL to r/o infective endocarditis. After discussion with cardiology and radiology, and extensive history and physical exam, it was decided that the etiology of the lung infiltration is likely infectious and the patient was discharged on a 10 day course of Doxycycline 100mg BID. PNA and right sided pleural effusion resulting in pleuritic pain - Tele admission while ruling out endocarditis - TTE was normal. - Discharge on Doxy. - ESR = 64 (elevated), CRP= 4.32 (elevated), Procalcitonin<0.05 (normal) - No WBC count, check CBC and CMP tomorrow AM. - pain control with Dilaudid 1.5 IV Q2H PRN - blood culture - No Growth to Date. Hepatic Steatosis and Obesity - HBA1C =5.3 Anxiety - Zolpidem for sleep - Ativan 1mg PRN for anxiety. Tobacco Abuser - Nicotine patch. Diet: regular DVT Prophylaxis Heparin bid Resident Involvement: Resident Care Provided Care Provided: Adult Hospital Medicine History Resident Physician Supervision Note: I was present with Dr. Garcia during the history and exam. I discussed the case with the resident and agree with the findings and plan as documented in the note. Any exceptions or clarifications are listed here. Pt reports near resolution in his right lower rib pain without pain medication at this time. Mild discomfort with forced deep inspiration. No fevers since admission. Tolerating antibiotics well, though has developed a red, raised, nonitchy skin rash which he states is similar to a rash he had with azithromycin as an outpatient after sun exposures. General Appearance: WD/WN, no apparent distress Respiratory: chest non-tender, lungs clear, normal breath sounds, no respiratory distress Cardiovascular: normal peripheral pulses, regular rate, rhythm, no edema, no murmur Gastrointestinal: normal bowel sounds, non tender, soft, no organomegaly Assessment/Plan 46 y/o male h/o tobacco use w/ RUQ/lower chest pain concerning for PNA PNA w/ effuesion - TTE without vegetation visible - reviewed imaging re: CT and echocardiogram, minimal concern for endocarditits at this time. Transition to doxycycline PO for 10 day Hepatic steatosis - stable, follow up as outpatient Anxiety - no formal dx per patient but very 'high stress' - ativan PRN given in hospital Tobacco use disorder - nicotine patch 7mg - encourage smoking cessation at follow up
[2017-02-04 07:34] LABS: ALB/GLOB RATIO 0.8 (0.9-2); CHOLESTEROL/HDL RATIO 3.8
[2017-02-04] MEDS: CHOLECALCIFEROL 1000 INTER.UNIT TAB PO SCH (08:06)
[2017-02-04] MEDS: MULTIVITAMIN TAB PO SCH (08:07)
[2017-02-04] MEDS: LACTOBACILLUS ACIDOPHILUS (FLORANEX) TAB PO SCH (08:07)
[2017-02-04] MEDS: LORATADINE 10 MG TAB PO SCH (08:07)
[2017-02-04] MEDS: OMEGA-3 (PURIFIED FISH OIL) 1 GM CAP PO SCH (08:08)
[2017-02-04] MEDS: NICOTINE 7 MG/24 HR TDSY TD SCH (08:08)
[2017-02-04 08:16] VITALS: BP 138/99; PULSE 91; TEMP 37; O2SAT 95
--- NOTE | 2017-02-04 08:53 | DIAGNOSTIC IMAGING REPORT ---
CHEST ONE VIEW PORTABLE CLINICAL HISTORY: pneumonia, pleural effusions pleural effusion COMPARISON STUDY: 02/03/2017 FINDINGS: Improved aeration both lung bases. Bibasilar residual atelectasis. Diaphragms are smooth. Minimal residual blunting right lateral costophrenic angle. Upper lungs are considered clear. IMPRESSION: Improving bibasilar parenchymal infiltrates. Electronically signed by: Lance Whyte M.D. 02/04/2017 8:52 AM Dictated Date/Time: 02/04/2017 8:52 AM
[2017-02-04] MEDS: HEPARIN SOD 5000 UNIT/0.5 ML CARP SQ SCH (11:41)
[2017-02-04] MEDS ORDERED: HYDROmorphone INJ 1 MG/ML SYR IV PRN (11:45)
[2017-02-04 11:57] VITALS: BP 139/100; PULSE 94; O2SAT 93
[2017-02-04] MEDS ORDERED: DOXY100C76 PO (13:20)
--- NOTE | 2017-02-04 13:24 | Discharge Instructions ---
Discharge Instructions Date of Service February 04, 2017. Admission Reason for Admission: Pleural Effusion, Pleuritis, Pneumonia Discharge Discharge Diagnosis / Problem: Aytpical Pneumonia Discharge Goals Goal(s): Decrease discomfort, Improve function, Increase independence, Improve disease control Activity Recommendations Activity Limitations: resume your previous activity . Instructions / Follow-Up Instructions / Follow-Up Please follow up with your primary care provider within the next 7 days. Please continue your Antibiotics as prescribed. We have prescribed Doxycycline 100mg, one pill twice a day for the next 7 days. Please stop smoking. This is important. Cigarette smoke can delay healing of your lungs and cause can inflammation in your lungs that can cause infections. You may opt for a repeat CT Scan of your chest in two months to follow complete resolution of your pneumonia. Your primary care provider can order this test. If you experience high fevers or a worsening of your chest pain please call your primary care doctor. Current Hospital Diet Patient's current hospital diet: AHA Diet (Heart Healthy), Low Sodium Diet (2gm Na) Discharge Diet Recommended Diet: Regular Diet Pending Studies Studies pending at discharge: no Laboratory Results Hemoglobin A1c Test 02/04/17 06:28 Range/Units Estimated Average Glucose 105 mg/dl Hemoglobin A1c 5.3 4.5-5.6 % Lipid Panel Test 02/04/17 06:28 Range/Units Triglycerides Level 84 0-150 mg/dl Cholesterol Level 164 0-200 mg/dl HDL Cholesterol 43 mg/dl Cholesterol/HDL Ratio 3.8 LDL Cholesterol, Calculated 104 mg/dl Medical Emergencies . Who to Call and When: Medical Emergencies: If at any time you feel your situation is an emergency, please call 911 immediately. . Non-Emergent Contact Non-Emergency issues call your: Primary Care Provider . . "Provider Documentation" section prepared by Lance Garcia. . VTE Core Measure Inpt VTE Proph given/why not?: Unfractionated heparin SQ Resident Involvement: Resident Care Provided Care Provided: Adult Hospital Medicine
[2017-02-04 13:36] VITALS: BP 139/100; PULSE 94; TEMP 37; O2SAT 93
--- NOTE | 2017-02-04 21:23 | Discharge Summary ---
Discharge Summary Date of Service February 04, 2017. Discharge Summary Admission Date: February 03, 2017 at 05:44 Discharge Date: February 04, 2017 Discharge Disposition: Home Principal Diagnosis: Atypical Pneumonia Medication Reconciliation New Medications: Doxycycline Monohydrate (Monodox) 100 Mg Cap 100 MG PO Q12 for 10 Days, #20 CAP Continued Medications: Cholecalciferol (Vitamin D3 High Potency) 1,000 Unit Cap 1000 UNIT PO DAILY Fish Oil (Minot-3) 1 Ea Cap 1 CAP PO DAILY, CAP Loratadine (Claritin) 10 Mg Tab 10 MG PO DAILY Multivitamin (Multivitamin) Tab 1 TAB PO DAILY, TAB Probiotic Product (Probiotic) 1 Cap Cap 1 CAP PO DAILY Discharge Exam Physical Exam General Appearance: WD/WN, no apparent distress Respiratory/Chest: chest non-tender, lungs clear, normal breath sounds, no respiratory distress, no accessory muscle use Cardiovascular: regular rate, rhythm, no edema, no gallop, no JVD, no murmur Abdomen: normal bowel sounds, non tender, soft, no organomegaly, no pulsatile mass Extremities: normal range of motion, non-tender, normal inspection, no pedal edema, no calf tenderness Neurologic/Psychiatric: no motor/sensory deficits, alert, normal mood/affect, oriented x 3 Skin: + pertinent finding (pt had a red skin rash over the abdomen, unknown origin, does not itch, bleed, petechiae like, non raised, non blanching.) Hospital Course 46M suffering from pneumonia/ right pleural effusion causing RUQ pain and referred pain in the right shoulder via phrenic nerve. This pain is pleuritic in nature reflected by no pain on palpation and worsening with inspiration. Pt denies IV drug use, recent oral surgery (his tooth does hurt) and need for HIV testing (pt is monogamous). TTE was grossly normal. Blood cultures were negative. Considered JOSE RAUL to r/o infective endocarditis. After discussion with cardiology and radiology, and extensive history and physical exam, it was decided that the etiology of the lung infiltration is likely infectious and the patient was discharged on a 10 day course of Doxycycline 100mg BID. Total Time Spent: Greater than 30 minutes This includes examination of the patient, discharge planning, medication reconciliation, and communication with other providers. Discharge Instructions Please refer to the electronic Patient Visit Report (Discharge Instructions) for additional information. Resident Involvement: Resident Care Provided Care Provided: Adult [facility] Medicine
[2017-02-04] MEDS ORDERED: VANCOMYCIN TROUGH ONE (21:30)
== END 2017-02-04 14:09 | disposition home or self-care (01) | DRG 194 ==
LOC: ENRESERVDT → ENRESERVTM → C.EDB 01:57 → C.2E 05:44
PROVIDERS: ADMIT Student in an Organized Health Care Education/Training Program; ATTEND Family Medicine
DX: J18.9 Pneumonia, unspecified organism (principal); J90 Pleural effusion, not elsewhere classified; J45.909 Unspecified asthma, uncomplicated; E66.9 Obesity, unspecified; F41.9 Anxiety disorder, unspecified; R07.81 Pleurodynia; K76.0 Fatty (change of) liver, not elsewhere classified; F17.210 Nicotine dependence, cigarettes, uncomplicated; Z68.38 Body mass index [BMI] 38.0-38.9, adult; Z79.899 Other long term (current) drug therapy

== ENCOUNTER → 2017-03-03 | Outpatient (CLI) | payer BC ==
[~2017-03-03] MED LIST changes: -ADVIN10/60 INH; +CHOL1CAP51 PO; +CLR10 PO; +MISCCAP80 PO; +MULT-506 PO; +OMEG10007 PO
--- NOTE | 2017-03-03 15:08 | DIAGNOSTIC IMAGING REPORT ---
CHEST 2 VIEWS ROUTINE CLINICAL HISTORY: J18.9 pneumonia COMPARISON STUDY: 02/04/2017 FINDINGS: Lungs are currently clear. There is a described basilar infiltrates have resolved. Diaphragms are smooth. No evidence for cardiac enlargement. IMPRESSION: Negative study of the chest. Lungs are now considered clear. Electronically signed by: Lance Whyte M.D. 03/03/2017 3:07 PM Dictated Date/Time: 03/03/2017 3:06 PM
[2017-03-03 19:41] LABS: INFLUENZA A PCR Neg for Influ A (NEG); INFLUENZA B PCR Neg for Influ B (NEG)
== END | disposition home or self-care (01) ==
LOC: C.RAD1850 14:55
PROVIDERS: ATTEND Internal Medicine
DX: J18.9 Pneumonia, unspecified organism (principal); R68.82 Decreased libido; J20.9 Acute bronchitis, unspecified